=== PATIENT | female | born 1930 | race African-American/Black ===

== ENCOUNTER 2020-04-01 21:55 | Inpatient (IN) | payer MEDICARE, BC ==
[~2020-04-01] VITALS: Ht 160 cm; Wt 73.2 kg
[2020-04-01 23:25] LABS: CHLORIDE 100 mEq/L (98-107)
[2020-04-01 23:28] LABS: HEMATOCRIT. 22.6 % (36.0-48.0); HEMOGLOBIN. 7.7 g/dL (12.0-16.0); MEAN CORPUSCULAR HEMOGLOBIN 29.8 pg (28.0-32.0); MEAN CORPUSCULAR VOLUME 88.1 fL (81.0-99.0); MEAN PLATELET VOLUME 7.7 fl (7.4-10.4); PLATELET 219 x1000/uL (130-400); RED BLOOD CELL COUNT 2.57 mill/uL (4.2-5.4)
[2020-04-02 04:50] LABS: PLATELET ESTIMATE NORMAL
[2020-04-02] MEDS ORDERED: GUAIFENESIN 200MG/10ML SUGAR FREE UDC PO PRN (07:15)
[2020-04-02] MEDS ORDERED: NITROGLYCERIN 0.4MG TABLET SL SL PRN (07:15)
[2020-04-02] MEDS ORDERED: CLONIDINE 0.1MG TABLET PO PRN (07:15)
[2020-04-02] MEDS ORDERED: ONDANSETRON HCL 4MG/2ML INJ IV PRN (07:15)
[2020-04-02] MEDS ORDERED: DOCUSATE SODIUM 100MG CAPSULE PO PRN (07:15)
[2020-04-02] MEDS ORDERED: TRAMADOL 50MG TABLET PO PRN (07:15)
[2020-04-02] MEDS ORDERED: ACETAMINOPHEN 325MG TABLET PO PRN ×2 (07:15)
[2020-04-02] MEDS ORDERED: MAGNESIUM/ALUMINUM HYDROXIDE/SIMETHICONE 30ML UDC PO PRN (07:15)
[2020-04-02] MEDS ORDERED: ZOLPIDEM TARTRATE 5MG TABLET PO PRN (07:15)
[2020-04-02] MEDS ORDERED: IPRATROPIUM/ALBUTEROL 0.5-3(2.5)MG/3ML NEB NEB PRN (07:15)
[2020-04-02] MEDS ORDERED: CHOLECALCIFEROL (D3) 1000 UNIT TABLET PO SCH (09:00)
[2020-04-02] MEDS: ZINC SULFATE 220 MG ( 50 ) CAPSULE PO SCH (09:17)
[2020-04-02] MEDS: FUROSEMIDE 40MG/4ML VIAL IVP SCH ×2 (09:17→21:00)
[2020-04-02] MEDS: ASCORBIC ACID 500 MG TABLET PO SCH ×2 (09:17→21:00)
[2020-04-02] MEDS: FAMOTIDINE 20MG TABLET PO SCH (09:17)
[2020-04-02] MEDS: SPIRONOLACTONE 25MG TABLET PO SCH ×2 (09:17→21:00)
[2020-04-02] MEDS: GUAIFENESIN/DM 600MG/30MG ER TAB 12HR PO SCH ×2 (09:17→21:00)
[2020-04-02 09:52] LABS: D-DIMER 1.89 mg/L FEU (<0.50); INR 1.1; PROTHROMBIN TIME 11.3 sec (9.6-11.0)
[2020-04-02 11:25] LABS: FOLIC ACID (FOLATE) SERUM >20 ng/mL ng/mL (>5.38)
[2020-04-02 11:36] LABS: VITAMIN B12 SERUM 504 pg/mL (211-911)
[2020-04-02] MEDS: AZITHROMYCIN 500 MG TABLET PO SCH (12:13)
[2020-04-02] MEDS: VENLAFAXINE HCL 37.5MG SR CAPSULE 24HR PO SCH (12:34)
[2020-04-02] MEDS: LEVOTHYROXINE SODIUM 25MCG TABLET PO SCH (12:34)
[2020-04-02 12:51] LABS: FERRITIN 191 ng/mL (10-291)
[2020-04-02 14:41] LABS: CREATINE KINASE 43 IU/L (26-192)
[2020-04-02 14:42] LABS: CREATINE KINASE MB FRACTION 1.9 ng/mL (0.5-3.6)
[2020-04-02] MEDS: APIXABAN 2.5 MG TABLET PO SCH (17:00)
[2020-04-02] MEDS ORDERED: ASCORBIC ACID 500 MG TABLET PO SCH (21:00)
[2020-04-02] MEDS: CARVEDILOL 3.125 MG TABLET PO SCH (21:00)
[2020-04-02] MEDS: OLANZAPINE 10MG TABLET PO SCH (21:00)
[2020-04-03 00:20] LABS: CREATINE KINASE 50 IU/L (26-192)
[2020-04-03 00:21] LABS: CREATINE KINASE MB FRACTION 2.2 ng/mL (0.5-3.6)
[2020-04-03 05:15] LABS: HEMATOCRIT. 21.6 % (36.0-48.0); HEMOGLOBIN. 7.4 g/dL (12.0-16.0); MEAN CORPUSCULAR HEMOGLOBIN 29.8 pg (28.0-32.0); MEAN CORPUSCULAR VOLUME 87.6 fL (81.0-99.0); MEAN PLATELET VOLUME 7.7 fl (7.4-10.4); PLATELET 211 x1000/uL (130-400); RED BLOOD CELL COUNT 2.47 mill/uL (4.2-5.4); RED CELL DISTRIBUTION WIDTH 15.7 % (11.6-14.6)
[2020-04-03 05:25] LABS: CHLORIDE 102 mEq/L (98-107)
[2020-04-03 05:30] LABS: PHOSPHORUS 5.1 mg/dL (2.5-4.9)
[2020-04-03 07:20] LABS: PLATELET ESTIMATE NORMAL
[2020-04-03] MEDS ORDERED: ERGOCALCIFEROL 50000UNITS CAPSULE PO SCH (09:00)
[2020-04-03] MEDS: LEVOTHYROXINE SODIUM 25MCG TABLET PO SCH (09:16)
[2020-04-03] MEDS: FUROSEMIDE 40MG/4ML VIAL IVP SCH ×2 (09:16→21:55)
[2020-04-03] MEDS: SPIRONOLACTONE 25MG TABLET PO SCH ×2 (09:17→21:00)
[2020-04-03] MEDS: CARVEDILOL 3.125 MG TABLET PO SCH ×2 (09:18→21:00)
[2020-04-03] MEDS: AZITHROMYCIN 500 MG TABLET PO SCH (09:18)
[2020-04-03] MEDS: GUAIFENESIN/DM 600MG/30MG ER TAB 12HR PO SCH ×2 (09:18→21:55)
[2020-04-03] MEDS: ASCORBIC ACID 500 MG TABLET PO SCH ×2 (09:18→21:56)
[2020-04-03] MEDS: VENLAFAXINE HCL 37.5MG SR CAPSULE 24HR PO SCH (09:18)
[2020-04-03] MEDS: ZINC SULFATE 220 MG ( 50 ) CAPSULE PO SCH (09:18)
[2020-04-03] MEDS: FAMOTIDINE 20MG TABLET PO SCH (09:18)
[2020-04-03] MEDS: APIXABAN 2.5 MG TABLET PO SCH (09:18)
[2020-04-03 15:03] VITALS: BP 127/46
[2020-04-03 20:00] VITALS: BP 145/53
[2020-04-03] MEDS: OLANZAPINE 10MG TABLET PO SCH (21:56)
[2020-04-04] VITALS: BP 140/54
[2020-04-04 04:00] VITALS: BP 150/50
[2020-04-04] MEDS: LEVOTHYROXINE SODIUM 25MCG TABLET PO SCH (05:02)
[2020-04-04 06:54] LABS: HEMATOCRIT. 22.4 % (36.0-48.0); HEMOGLOBIN. 7.6 g/dL (12.0-16.0); MEAN CORPUSCULAR HEMOGLOBIN 29.8 pg (28.0-32.0); MEAN CORPUSCULAR VOLUME 87.9 fL (81.0-99.0); MEAN PLATELET VOLUME 7.7 fl (7.4-10.4); PLATELET 252 x1000/uL (130-400); RED BLOOD CELL COUNT 2.55 mill/uL (4.2-5.4); RED CELL DISTRIBUTION WIDTH 15.8 % (11.6-14.6)
[2020-04-04 09:02] VITALS: BP 158/54
[2020-04-04] MEDS: ASCORBIC ACID 500 MG TABLET PO SCH ×2 (09:14→21:14)
[2020-04-04] MEDS: GUAIFENESIN/DM 600MG/30MG ER TAB 12HR PO SCH ×2 (09:15→21:13)
[2020-04-04] MEDS: AZITHROMYCIN 500 MG TABLET PO SCH (09:15)
[2020-04-04] MEDS: VENLAFAXINE HCL 37.5MG SR CAPSULE 24HR PO SCH (09:15)
[2020-04-04] MEDS: SPIRONOLACTONE 25MG TABLET PO SCH ×2 (09:15→21:13)
[2020-04-04] MEDS: FAMOTIDINE 20MG TABLET PO SCH (09:15)
[2020-04-04] MEDS: FUROSEMIDE 40MG/4ML VIAL IVP SCH ×2 (09:15→21:14)
[2020-04-04] MEDS: ZINC SULFATE 220 MG ( 50 ) CAPSULE PO SCH (09:16)
[2020-04-04 12:00] VITALS: BP 127/49
[2020-04-04 14:18] LABS: PLATELET ESTIMATE NORMAL
[2020-04-04 16:00] VITALS: BP 155/67
[2020-04-04 20:00] VITALS: BP 149/46
[2020-04-04] MEDS: OLANZAPINE 10MG TABLET PO SCH (21:15)
[2020-04-05] VITALS (11 sets, daily range): BP systolic 130–153; BP diastolic 38–77
[2020-04-05 06:13] LABS: BASOPHILS % 0.3 % (0.0-2.0); EOSINOPHILS % 0.1 % (0.0-5.0); LYMPHOCYTES % 9.9 % (20.0-50.0); MEAN CORPUSCULAR HEMOGLOBIN 30.2 pg (28.0-32.0); MEAN CORPUSCULAR VOLUME 87.9 fL (81.0-99.0); MEAN PLATELET VOLUME 7.6 fl (7.4-10.4); MONOCYTES % 6.4 % (2.0-8.0); NEUTROPHILS % 83.3 % (40.0-76.0); PLATELET 247 x1000/uL (130-400); RED BLOOD CELL COUNT 2.31 mill/uL (4.2-5.4); RED CELL DISTRIBUTION WIDTH 15.9 % (11.6-14.6)
[2020-04-05] MEDS: LEVOTHYROXINE SODIUM 25MCG TABLET PO SCH (06:54)
[2020-04-05 07:55] LABS: HEMATOCRIT. 20.3 % (36.0-48.0)
[2020-04-05] MEDS ORDERED: POTASSIUM CHLORIDE 20MEQ/PACKET PO SCH (09:30)
[2020-04-05] MEDS: GUAIFENESIN/DM 600MG/30MG ER TAB 12HR PO SCH ×2 (09:50→21:50)
[2020-04-05] MEDS: AZITHROMYCIN 500 MG TABLET PO SCH (09:50)
[2020-04-05] MEDS: ZINC SULFATE 220 MG ( 50 ) CAPSULE PO SCH (09:50)
[2020-04-05] MEDS: ASCORBIC ACID 500 MG TABLET PO SCH ×2 (09:50→21:50)
[2020-04-05] MEDS: FAMOTIDINE 20MG TABLET PO SCH (09:50)
[2020-04-05] MEDS: FUROSEMIDE 40MG/4ML VIAL IVP SCH ×2 (09:50→21:50)
[2020-04-05] MEDS: VENLAFAXINE HCL 37.5MG SR CAPSULE 24HR PO SCH (09:50)
[2020-04-05] MEDS: SPIRONOLACTONE 25MG TABLET PO SCH ×2 (09:51→21:50)
[2020-04-05] MEDS: AMLODIPINE 2.5MG TABLET PO SCH (09:52)
[2020-04-05 10:35] LABS: BG BASE EXCESS -1.3 mmol/L (-2.0-2.0); BG CARBOXYHEMOGLOBIN 0.5 % (0.5-1.5); BG DEOXYHEMOGLOBIN 3.4 % (0.0-5.0); BG FRACTION INSPIRED OXYGEN 32; BG HCO3 ACT 22.9 mmol/L (22.0-26.0); BG METHEMOGLOBIN 0.3 % (0.0-1.5); BG OXYGEN SATURATION 96.6 % (92.0-98.5); BG OXYHEMOGLOBIN 95.8 % (94.0-97.0); BG PCO2 35.4 mmHg (35.0-45.0); BG PH 7.428 (7.350-7.450); BG PO2 90.4 mmHg (75.0-100.0); BG SAMPLE SITE RIGHT BRACHIAL; BG TOTAL HEMOGLOBIN 7.6 g/dL (12.0-18.0); BG VENT MODE NASAL CANNULA
[2020-04-05] MEDS ORDERED: SODIUM BICARBONATE 4% (2.4MEQ) 5ML VIAL IV ONE (12:36)
[2020-04-05] MEDS ORDERED: LIDOCAINE HCL 1% 20ML VIAL (Pyxis) INJ ONE (12:36)
[2020-04-05] MEDS: FERROUS SULFATE 325MG TABLET PO SCH (18:20)
[2020-04-05] MEDS ORDERED: ASCORBIC ACID 500 MG TABLET PO SCH (21:00)
[2020-04-05 21:42] LABS: HEMATOCRIT 27.4 % (36.0-48.0); HEMOGLOBIN 9.2 g/dL (12.0-16.0)
[2020-04-05] MEDS: OLANZAPINE 10MG TABLET PO SCH (21:50)
[2020-04-06] VITALS: BP 120/73
[2020-04-06 04:00] VITALS: BP 123/45
[2020-04-06] MEDS: FERROUS SULFATE 325MG TABLET PO SCH ×2 (06:57→12:42)
[2020-04-06] MEDS: LEVOTHYROXINE SODIUM 25MCG TABLET PO SCH (06:57)
[2020-04-06 08:00] VITALS: BP 166/58
[2020-04-06 08:12] LABS: BASOPHILS % 0.5 % (0.0-2.0); EOSINOPHILS % 0.1 % (0.0-5.0); HEMATOCRIT. 26.5 % (36.0-48.0); HEMOGLOBIN. 8.9 g/dL (12.0-16.0); LYMPHOCYTES % 8.8 % (20.0-50.0); MEAN CORPUSCULAR HEMOGLOBIN 28.5 pg (28.0-32.0); MEAN CORPUSCULAR VOLUME 85.2 fL (81.0-99.0); MEAN PLATELET VOLUME 7.2 fl (7.4-10.4); MONOCYTES % 6.5 % (2.0-8.0); NEUTROPHILS % 84.1 % (40.0-76.0); PLATELET 250 x1000/uL (130-400); RED BLOOD CELL COUNT 3.11 mill/uL (4.2-5.4); RED CELL DISTRIBUTION WIDTH 18.2 % (11.6-14.6)
[2020-04-06] MEDS: GUAIFENESIN/DM 600MG/30MG ER TAB 12HR PO SCH (09:11)
[2020-04-06] MEDS: AMLODIPINE 2.5MG TABLET PO SCH (09:12)
[2020-04-06] MEDS: ASCORBIC ACID 500 MG TABLET PO SCH (09:12)
[2020-04-06] MEDS: VENLAFAXINE HCL 37.5MG SR CAPSULE 24HR PO SCH (09:12)
[2020-04-06] MEDS: AZITHROMYCIN 500 MG TABLET PO SCH (09:12)
[2020-04-06] MEDS: FAMOTIDINE 20MG TABLET PO SCH (09:12)
[2020-04-06] MEDS: FUROSEMIDE 40MG/4ML VIAL IVP SCH (09:12)
[2020-04-06] MEDS: ZINC SULFATE 220 MG ( 50 ) CAPSULE PO SCH (09:12)
[2020-04-06] MEDS: SPIRONOLACTONE 25MG TABLET PO SCH (09:12)
[2020-04-06 10:47] LABS: BG BASE EXCESS -0.6 mmol/L (-2.0-2.0); BG CARBOXYHEMOGLOBIN 0.3 % (0.5-1.5); BG DEOXYHEMOGLOBIN 9.3 % (0.0-5.0); BG FRACTION INSPIRED OXYGEN 21; BG HCO3 ACT 23.3 mmol/L (22.0-26.0); BG METHEMOGLOBIN 0.2 % (0.0-1.5); BG OXYGEN SATURATION 90.7 % (92.0-98.5); BG OXYHEMOGLOBIN 90.2 % (94.0-97.0); BG PCO2 35.7 mmHg (35.0-45.0); BG PH 7.433 (7.350-7.450); BG PO2 58.2 mmHg (75.0-100.0); BG SAMPLE SITE LEFT BRACHIAL; BG TOTAL HEMOGLOBIN 10.1 g/dL (12.0-18.0); BG VENT MODE ROOM AIR
[2020-04-06] MEDS ORDERED: OMEPRAZOLE 20MG CAPSULE EXTENDED RELEASE PO SCH (12:45)
[2020-04-06 13:08] VITALS: BP 149/56
[2020-05-10] MEDS ORDERED: ATOR-2 MT (14:33)
[2020-05-10] MEDS ORDERED: LEVO25TA7 PO (14:33)
[2020-05-10] MEDS ORDERED: TERA1CAP46 MT (14:33)
[2020-05-10] MEDS ORDERED: LOSA50TA41 PO (14:33)
[2020-05-10] MEDS ORDERED: FOLI-43 MT (14:33)
[2020-05-10] MEDS ORDERED: FURO40TA5 PO (14:33)
[2020-05-10] MEDS ORDERED: FAMO20TA8 PO (14:33)
[2020-05-10] MEDS ORDERED: OLAN20TA34 MT (14:33)
[2020-05-10] MEDS ORDERED: SENN-257 MT (14:33)
[2020-05-10] MEDS ORDERED: CELE200C MT (14:33)
[2020-05-10] MEDS ORDERED: VENL-180 PO (14:33)
[2020-05-10] MEDS ORDERED: AMLO10TA80 PO (14:33)
[2020-05-10] MEDS ORDERED: FERR325T6 MT (14:33)
[2020-05-10] MEDS ORDERED: ATEN50TA MT (14:33)
[2020-05-10] MEDS ORDERED: PANT40TA51 PO (14:33)
[2020-05-10] MEDS ORDERED: AMLO5TAB88 MT (15:35)
== END 2020-04-06 14:20 | disposition home health service (06) | DRG 291 ==
LOC: ER 21:55 → EDBD 21:55 → MICUSO 04-02 06:00 → EDBEDREQDT 04-02 06:10 → EDBEDREQ 04-02 06:10 → EDBEDREQTM 04-02 06:10 → SUPCPDRO 04-02 07:05 → 7WST 04-03 10:21 → 5WST 04-04 05:40
PROVIDERS: ADMIT Internal Medicine; ATTEND Internal Medicine
PROC: 30233N1 Transfusion of Nonautologous Red Blood Cells into Peripheral Vein, Percutaneous Approach (ICD-10-PCS; principal; 2020-04-05)
PROC: 02HV33Z Insertion of Infusion Device into Superior Vena Cava, Percutaneous Approach (ICD-10-PCS; 2020-04-05)
PROC: B548ZZA Ultrasonography of Superior Vena Cava, Guidance (ICD-10-PCS; 2020-04-05)
PROC: B5181ZA Fluoroscopy of Superior Vena Cava using Low Osmolar Contrast, Guidance (ICD-10-PCS; 2020-04-05)
DX: I13.0 Hypertensive heart and chronic kidney disease with heart failure and stage 1 through stage 4 chronic kidney disease, or unspecified chronic kidney disease (principal); J18.9 Pneumonia, unspecified organism; J96.01 Acute respiratory failure with hypoxia; N17.0 Acute kidney failure with tubular necrosis; I50.41 Acute combined systolic (congestive) and diastolic (congestive) heart failure; J44.0 Chronic obstructive pulmonary disease with (acute) lower respiratory infection; E44.0 Moderate protein-calorie malnutrition; E87.1 Hypo-osmolality and hyponatremia; B37.81 Candidal esophagitis; D63.8 Anemia in other chronic diseases classified elsewhere; E03.9 Hypothyroidism, unspecified; E11.22 Type 2 diabetes mellitus with diabetic chronic kidney disease; N18.9 Chronic kidney disease, unspecified; E78.5 Hyperlipidemia, unspecified; G25.0 Essential tremor; I25.10 Atherosclerotic heart disease of native coronary artery without angina pectoris; I27.20 Pulmonary hypertension, unspecified; I35.9 Nonrheumatic aortic valve disorder, unspecified; I48.0 Paroxysmal atrial fibrillation; I49.3 Ventricular premature depolarization; J30.9 Allergic rhinitis, unspecified; K21.9 Gastro-esophageal reflux disease without esophagitis; K22.70 Barrett's esophagus without dysplasia; M32.9 Systemic lupus erythematosus, unspecified; F31.9 Bipolar disorder, unspecified; I34.0 Nonrheumatic mitral (valve) insufficiency; F41.9 Anxiety disorder, unspecified; K44.9 Diaphragmatic hernia without obstruction or gangrene; K21.00 Gastro-esophageal reflux disease with esophagitis, without bleeding; K52.9 Noninfective gastroenteritis and colitis, unspecified; M19.90 Unspecified osteoarthritis, unspecified site; Z20.822 Contact with and (suspected) exposure to COVID-19; D50.9 Iron deficiency anemia, unspecified; Z78.9 Other specified health status; Z79.01 Long term (current) use of anticoagulants; Z68.28 Body mass index [BMI] 28.0-28.9, adult; I25.2 Old myocardial infarction; Z86.73 Personal history of transient ischemic attack (TIA), and cerebral infarction without residual deficits; Z87.891 Personal history of nicotine dependence; Z91.81 History of falling; Z95.3 Presence of xenogenic heart valve; Z95.5 Presence of coronary angioplasty implant and graft; Z79.899 Other long term (current) drug therapy; Z87.11 Personal history of peptic ulcer disease
CPT/HCPCS: 36415; 36573; 36600; 71045; 80048; 80053; 80061; 82270; 82375; 82550; 82553; 82607; 82728; 82746; 82805; 82962; 83036; 83540; 83550; 83615; 83735; 83880; 84100; 84145; 84484; 85014; 85018; 85025; 85379; 86140; 86850; 86900; 86920; 87635; 93005; 93306; 93970; 96374; 97116; 97162; 97166; 97530; 97535; 99291; C1725; C1769; C1893; J1940; J3490; J7040; P9016

== ENCOUNTER 2020-04-11 17:14 | Inpatient (IN) | payer MEDICARE, BC ==
[~2020-04-11] VITALS: Ht 157.5 cm; Wt 64.9 kg
[2020-04-11] MEDS ORDERED: DOCUSATE SODIUM 100MG CAPSULE PO PRN (20:00)
[2020-04-11] MEDS ORDERED: CLONIDINE 0.1MG TABLET PO PRN (20:00)
[2020-04-11] MEDS ORDERED: IPRATROPIUM/ALBUTEROL 0.5-3(2.5)MG/3ML NEB HHN PRN (20:00)
[2020-04-11] MEDS ORDERED: NA PHOS,M-B/NA PHOS,DI-BA ENEMA 118ML PR PRN (20:00)
[2020-04-11] MEDS ORDERED: GUAIFENESIN 200MG/10ML SUGAR FREE UDC PO PRN (20:00)
[2020-04-11 20:24] LABS: HEMATOCRIT. 29.4 % (36.0-48.0); HEMOGLOBIN. 9.8 g/dL (12.0-16.0); MEAN CORPUSCULAR HEMOGLOBIN 28.1 pg (28.0-32.0); MEAN CORPUSCULAR VOLUME 84.8 fL (81.0-99.0); MEAN PLATELET VOLUME 7.2 fl (7.4-10.4); PLATELET 300 x1000/uL (130-400); RED BLOOD CELL COUNT 3.47 mill/uL (4.2-5.4); RED CELL DISTRIBUTION WIDTH 17.7 % (11.6-14.6)
[2020-04-11] MEDS ORDERED: LEVOTHYROXINE SODIUM 25MCG TABLET PO NR (20:30)
[2020-04-11 20:31] LABS: CHLORIDE 100 mEq/L (98-107)
[2020-04-11 20:32] LABS: INR 1.1; PROTHROMBIN TIME 11.6 sec (9.6-11.0)
[2020-04-11] MEDS ORDERED: CARVEDILOL 3.125 MG TABLET PO NR (20:37)
[2020-04-11 20:55] LABS: PLATELET ESTIMATE NORMAL
[2020-04-11] MEDS ORDERED: FOLIC ACID 1 MG, THIAMINE HCL 100 MG in SODIUM CHLORIDE 0.9% 1,000 ML IV SCH (21:00)
[2020-04-11] MEDS ORDERED: MULTIVITAMINS,THER W-MINERALS TABLET PO SCH (21:00)
[2020-04-11] MEDS ORDERED: MVI, ADULT NO.1 10 ML, FOLIC ACID 1 MG, THIAMINE HCL 100 MG in SODIUM CHLORIDE 0.9% 1,0... IV SCH (21:00)
[2020-04-11 21:25] LABS: BG BASE EXCESS 4.2 mmol/L (-2.0-2.0); BG CARBOXYHEMOGLOBIN 0.2 % (0.5-1.5); BG DEOXYHEMOGLOBIN 4.3 % (0.0-5.0); BG FRACTION INSPIRED OXYGEN 24; BG HCO3 ACT 28.5 mmol/L (22.0-26.0); BG METHEMOGLOBIN 0.2 % (0.0-1.5); BG OXYGEN SATURATION 95.7 % (92.0-98.5); BG OXYHEMOGLOBIN 95.3 % (94.0-97.0); BG PCO2 41.3 mmHg (35.0-45.0); BG PH 7.456 (7.350-7.450); BG PO2 84.7 mmHg (75.0-100.0); BG SAMPLE SITE RIGHT RADIAL; BG TOTAL HEMOGLOBIN 11.2 g/dL (12.0-18.0); BG VENT MODE NASAL CANNULA
[2020-04-12] MEDS: ATORVASTATIN CALCIUM 40MG TABLET PO SCH ×2 (00:14→21:05)
[2020-04-12] MEDS: METHYLPREDNISOLONE SOD SUCC 40 MG/ML VIAL IV SCH ×4 (01:23→21:00)
[2020-04-12] MEDS: ENOXAPARIN 30MG/0.3ML SYR SUBCUT SCH ×2 (01:23→21:00)
[2020-04-12] MEDS: FUROSEMIDE 40MG TABLET PO SCH ×3 (01:23→21:02)
[2020-04-12] MEDS: OLANZAPINE 10MG TABLET PO SCH ×2 (01:23→21:01)
[2020-04-12] MEDS: HYDRALAZINE HCL 25MG TABLET PO SCH ×4 (01:24→21:33)
[2020-04-12 05:14] LABS: HEMATOCRIT. 30.3 % (36.0-48.0); MEAN CORPUSCULAR HEMOGLOBIN 28.3 pg (28.0-32.0); MEAN CORPUSCULAR VOLUME 85.5 fL (81.0-99.0); MEAN PLATELET VOLUME 7.2 fl (7.4-10.4); PLATELET 290 x1000/uL (130-400); RED BLOOD CELL COUNT 3.54 mill/uL (4.2-5.4); RED CELL DISTRIBUTION WIDTH 17.9 % (11.6-14.6)
[2020-04-12] MEDS: PANTOPRAZOLE 40MG DR TABLET PO SCH (06:30)
[2020-04-12] MEDS: FERROUS SULFATE 325MG TABLET PO SCH ×3 (07:00→17:27)
[2020-04-12 08:48] LABS: PLATELET ESTIMATE NORMAL
[2020-04-12] MEDS: TICAGRELOR 90 MG TABLET PO SCH ×2 (09:14→17:27)
[2020-04-12] MEDS: VENLAFAXINE HCL 37.5MG SR CAPSULE 24HR PO SCH (09:14)
[2020-04-12 10:30] VITALS: BP 145/52
[2020-04-12] MEDS: CEFTRIAXONE 1,000 MG in DEXTROSE 5% WATER 50 ML IV SCH (11:42)
[2020-04-12] MEDS: POTASSIUM CHLORIDE 20MEQ TABLET SR PO SCH ×2 (11:42→17:27)
[2020-04-12] MEDS: AMLODIPINE 2.5MG TABLET PO SCH ×2 (11:43→21:02)
[2020-04-12 12:00] VITALS: BP 143/50
[2020-04-12 16:00] VITALS: BP 140/50
[2020-04-12] MEDS ORDERED: DEXTROSE 50% WATER 50ML SYRINGE IV PRN (19:30)
[2020-04-12 20:00] VITALS: BP 126/41
[2020-04-12] MEDS: BLOOD SUGAR DIAGNOSTIC STRIP TEST SCH (21:02)
[2020-04-12] MEDS: INSULIN LISPRO 100 UNITS/ML SUBCUT SCH (21:04)
[2020-04-12] MEDS: IPRATROPIUM/ALBUTEROL 0.5-3(2.5)MG/3ML NEB HHN SCH (22:06)
[2020-04-13] VITALS: BP 119/45
[2020-04-13 04:00] VITALS: BP 119/50
[2020-04-13] MEDS: IPRATROPIUM/ALBUTEROL 0.5-3(2.5)MG/3ML NEB HHN SCH ×5 (04:01→20:43)
[2020-04-13] MEDS: METHYLPREDNISOLONE SOD SUCC 40 MG/ML VIAL IV SCH ×3 (05:05→20:29)
[2020-04-13] MEDS: HYDRALAZINE HCL 25MG TABLET PO SCH ×3 (06:07→21:35)
[2020-04-13] MEDS: PANTOPRAZOLE 40MG DR TABLET PO SCH (06:07)
[2020-04-13] MEDS: BLOOD SUGAR DIAGNOSTIC STRIP TEST SCH ×4 (06:08→20:32)
[2020-04-13] MEDS: INSULIN LISPRO 100 UNITS/ML SUBCUT SCH ×4 (06:08→20:32)
[2020-04-13 08:00] VITALS: BP 121/71
[2020-04-13 08:49] LABS: HEMATOCRIT. 27.5 % (36.0-48.0); HEMOGLOBIN. 9.2 g/dL (12.0-16.0); MEAN CORPUSCULAR HEMOGLOBIN 29.1 pg (28.0-32.0); MEAN CORPUSCULAR VOLUME 86.9 fL (81.0-99.0); MEAN PLATELET VOLUME 7.4 fl (7.4-10.4); PLATELET 271 x1000/uL (130-400); RED BLOOD CELL COUNT 3.17 mill/uL (4.2-5.4); RED CELL DISTRIBUTION WIDTH 18.2 % (11.6-14.6)
[2020-04-13 09:02] LABS: CHLORIDE 103 mEq/L (98-107)
[2020-04-13] MEDS: FERROUS SULFATE 325MG TABLET PO SCH ×3 (09:17→17:19)
[2020-04-13] MEDS: AMLODIPINE 2.5MG TABLET PO SCH ×2 (09:20→20:31)
[2020-04-13] MEDS: POTASSIUM CHLORIDE 20MEQ TABLET SR PO SCH ×2 (09:21→17:20)
[2020-04-13] MEDS: TICAGRELOR 90 MG TABLET PO SCH ×2 (09:21→17:19)
[2020-04-13] MEDS: VENLAFAXINE HCL 37.5MG SR CAPSULE 24HR PO SCH (09:21)
[2020-04-13] MEDS: FUROSEMIDE 40MG TABLET PO SCH ×2 (09:22→20:30)
[2020-04-13] MEDS: CEFTRIAXONE 1,000 MG in DEXTROSE 5% WATER 50 ML IV SCH (11:57)
[2020-04-13 12:00] VITALS: BP 124/80
[2020-04-13 16:00] VITALS: BP 126/44
[2020-04-13 20:00] VITALS: BP 127/45
[2020-04-13] MEDS: ENOXAPARIN 30MG/0.3ML SYR SUBCUT SCH (20:30)
[2020-04-13] MEDS: OLANZAPINE 10MG TABLET PO SCH (20:30)
[2020-04-13] MEDS: ATORVASTATIN CALCIUM 40MG TABLET PO SCH (20:30)
[2020-04-13 23:39] LABS: PLATELET ESTIMATE NORMAL
[2020-04-14] VITALS (7 sets, daily range): BP systolic 107–126; BP diastolic 36–60
[2020-04-14] MEDS: IPRATROPIUM/ALBUTEROL 0.5-3(2.5)MG/3ML NEB HHN SCH ×5 (01:54→20:05)
[2020-04-14] MEDS: METHYLPREDNISOLONE SOD SUCC 40 MG/ML VIAL IV SCH ×3 (05:38→21:35)
[2020-04-14] MEDS: HYDRALAZINE HCL 25MG TABLET PO SCH ×3 (05:48→21:35)
[2020-04-14] MEDS: BLOOD SUGAR DIAGNOSTIC STRIP TEST SCH ×4 (06:32→21:00)
[2020-04-14] MEDS: PANTOPRAZOLE 40MG DR TABLET PO SCH (06:32)
[2020-04-14] MEDS: INSULIN LISPRO 100 UNITS/ML SUBCUT SCH ×4 (06:34→21:36)
[2020-04-14] MEDS: TICAGRELOR 90 MG TABLET PO SCH ×2 (08:51→17:18)
[2020-04-14] MEDS: POTASSIUM CHLORIDE 20MEQ TABLET SR PO SCH ×2 (08:51→17:18)
[2020-04-14] MEDS: VENLAFAXINE HCL 37.5MG SR CAPSULE 24HR PO SCH (08:51)
[2020-04-14] MEDS: FERROUS SULFATE 325MG TABLET PO SCH ×3 (08:51→17:18)
[2020-04-14] MEDS: FUROSEMIDE 40MG TABLET PO SCH ×2 (08:51→21:35)
[2020-04-14] MEDS: AMLODIPINE 2.5MG TABLET PO SCH ×2 (09:01→21:35)
[2020-04-14] MEDS: CEFTRIAXONE 1,000 MG in DEXTROSE 5% WATER 50 ML IV SCH (12:06)
[2020-04-14 20:58] LABS: HEMATOCRIT. 26.9 % (36.0-48.0); HEMOGLOBIN. 8.7 g/dL (12.0-16.0); MEAN CORPUSCULAR HEMOGLOBIN 28.2 pg (28.0-32.0); MEAN CORPUSCULAR VOLUME 87.4 fL (81.0-99.0); MEAN PLATELET VOLUME 7.9 fl (7.4-10.4); PLATELET 257 x1000/uL (130-400); RED BLOOD CELL COUNT 3.07 mill/uL (4.2-5.4); RED CELL DISTRIBUTION WIDTH 19.3 % (11.6-14.6)
[2020-04-14] MEDS ORDERED: SODIUM POLYSTYRENE SULFONATE 15 G/60 ML BOT PO NR (21:30)
[2020-04-14] MEDS: ENOXAPARIN 30MG/0.3ML SYR SUBCUT SCH (21:34)
[2020-04-14] MEDS: OLANZAPINE 10MG TABLET PO SCH (21:34)
[2020-04-14] MEDS: ATORVASTATIN CALCIUM 40MG TABLET PO SCH (21:35)
[2020-04-14 22:34] LABS: PLATELET ESTIMATE NORMAL
[2020-04-15] VITALS (7 sets, daily range): BP systolic 121–135; BP diastolic 40–56
[2020-04-15] MEDS: METHYLPREDNISOLONE SOD SUCC 40 MG/ML VIAL IV SCH ×3 (05:48→21:36)
[2020-04-15] MEDS: HYDRALAZINE HCL 25MG TABLET PO SCH ×3 (05:49→21:40)
[2020-04-15] MEDS: BLOOD SUGAR DIAGNOSTIC STRIP TEST SCH ×4 (06:28→21:00)
[2020-04-15] MEDS: INSULIN LISPRO 100 UNITS/ML SUBCUT SCH ×4 (06:41→22:24)
[2020-04-15] MEDS: PANTOPRAZOLE 40MG DR TABLET PO SCH (06:41)
[2020-04-15] MEDS: TICAGRELOR 90 MG TABLET PO SCH ×2 (08:48→18:23)
[2020-04-15] MEDS: FERROUS SULFATE 325MG TABLET PO SCH ×3 (08:48→18:23)
[2020-04-15] MEDS: FUROSEMIDE 40MG TABLET PO SCH ×2 (08:49→21:37)
[2020-04-15] MEDS: AMLODIPINE 2.5MG TABLET PO SCH ×2 (08:49→21:40)
[2020-04-15] MEDS: VENLAFAXINE HCL 37.5MG SR CAPSULE 24HR PO SCH (08:49)
[2020-04-15 08:58] LABS: HEMATOCRIT. 26.6 % (36.0-48.0); HEMOGLOBIN. 8.7 g/dL (12.0-16.0); MEAN CORPUSCULAR HEMOGLOBIN 28.4 pg (28.0-32.0); MEAN CORPUSCULAR VOLUME 86.8 fL (81.0-99.0); MEAN PLATELET VOLUME 7.7 fl (7.4-10.4); PLATELET 266 x1000/uL (130-400); RED BLOOD CELL COUNT 3.06 mill/uL (4.2-5.4); RED CELL DISTRIBUTION WIDTH 18.9 % (11.6-14.6)
[2020-04-15] MEDS: IPRATROPIUM/ALBUTEROL 0.5-3(2.5)MG/3ML NEB HHN SCH ×4 (09:19→21:38)
[2020-04-15 10:35] LABS: PLATELET ESTIMATE NORMAL
[2020-04-15] MEDS: CEFTRIAXONE 1,000 MG in DEXTROSE 5% WATER 50 ML IV SCH (11:39)
[2020-04-15] MEDS ORDERED: SODIUM POLYSTYRENE SULFONATE 15 G/60 ML BOT PO NR (18:00)
[2020-04-15] MEDS: ENOXAPARIN 30MG/0.3ML SYR SUBCUT SCH (21:36)
[2020-04-15] MEDS: OLANZAPINE 10MG TABLET PO SCH (21:39)
[2020-04-15] MEDS: ATORVASTATIN CALCIUM 40MG TABLET PO SCH (21:40)
[2020-04-16] VITALS: BP 144/43
[2020-04-16] MEDS: IPRATROPIUM/ALBUTEROL 0.5-3(2.5)MG/3ML NEB HHN SCH ×6 (00:59→20:11)
[2020-04-16 04:00] VITALS: BP 107/53
[2020-04-16] MEDS: HYDRALAZINE HCL 25MG TABLET PO SCH ×3 (06:00→21:21)
[2020-04-16] MEDS: BLOOD SUGAR DIAGNOSTIC STRIP TEST SCH ×4 (06:28→21:22)
[2020-04-16] MEDS: METHYLPREDNISOLONE SOD SUCC 40 MG/ML VIAL IV SCH ×2 (06:33→21:21)
[2020-04-16] MEDS: PANTOPRAZOLE 40MG DR TABLET PO SCH (06:33)
[2020-04-16] MEDS: INSULIN LISPRO 100 UNITS/ML SUBCUT SCH ×4 (06:35→21:00)
[2020-04-16 08:00] VITALS: BP 127/49
[2020-04-16] MEDS: FUROSEMIDE 40MG TABLET PO SCH ×2 (09:01→21:22)
[2020-04-16] MEDS: FERROUS SULFATE 325MG TABLET PO SCH ×3 (09:01→17:38)
[2020-04-16] MEDS: AMLODIPINE 2.5MG TABLET PO SCH ×2 (09:02→21:22)
[2020-04-16] MEDS: TICAGRELOR 90 MG TABLET PO SCH ×2 (09:02→17:32)
[2020-04-16] MEDS: VENLAFAXINE HCL 37.5MG SR CAPSULE 24HR PO SCH (09:02)
[2020-04-16 12:00] VITALS: BP 106/55
[2020-04-16] MEDS: CEFTRIAXONE 1,000 MG in DEXTROSE 5% WATER 50 ML IV SCH (12:31)
[2020-04-16 13:39] LABS: HEMATOCRIT. 28.7 % (36.0-48.0); HEMOGLOBIN. 9.3 g/dL (12.0-16.0); MEAN CORPUSCULAR HEMOGLOBIN 28.1 pg (28.0-32.0); MEAN CORPUSCULAR VOLUME 86.8 fL (81.0-99.0); MEAN PLATELET VOLUME 7.7 fl (7.4-10.4); PLATELET 297 x1000/uL (130-400); RED CELL DISTRIBUTION WIDTH 18.8 % (11.6-14.6)
[2020-04-16] MEDS: ASPIRIN 81MG TABLET PO SCH (15:59)
[2020-04-16 16:00] VITALS: BP 133/62
[2020-04-16 17:25] LABS: PLATELET ESTIMATE NORMAL
[2020-04-16 20:00] VITALS: BP 139/47
[2020-04-16] MEDS: ENOXAPARIN 30MG/0.3ML SYR SUBCUT SCH (21:21)
[2020-04-16] MEDS: ATORVASTATIN CALCIUM 40MG TABLET PO SCH (21:22)
[2020-04-16] MEDS: OLANZAPINE 10MG TABLET PO SCH (21:22)
[2020-04-16] MEDS: CARVEDILOL 3.125 MG TABLET PO SCH (21:22)
[2020-04-17] VITALS: BP 158/65
[2020-04-17] MEDS: IPRATROPIUM/ALBUTEROL 0.5-3(2.5)MG/3ML NEB HHN SCH ×6 (01:40→21:55)
[2020-04-17 04:00] VITALS: BP 137/47
[2020-04-17] MEDS: PANTOPRAZOLE 40MG DR TABLET PO SCH ×3 (06:44→11:03)
[2020-04-17] MEDS: HYDRALAZINE HCL 25MG TABLET PO SCH ×3 (06:44→21:05)
[2020-04-17] MEDS: INSULIN LISPRO 100 UNITS/ML SUBCUT SCH ×4 (06:45→20:09)
[2020-04-17] MEDS: BLOOD SUGAR DIAGNOSTIC STRIP TEST SCH ×4 (06:45→20:09)
[2020-04-17 08:00] VITALS: BP 130/60
[2020-04-17] MEDS: VENLAFAXINE HCL 37.5MG SR CAPSULE 24HR PO SCH (08:32)
[2020-04-17] MEDS: FERROUS SULFATE 325MG TABLET PO SCH ×3 (08:32→16:52)
[2020-04-17] MEDS: ASPIRIN 81MG TABLET PO SCH (08:32)
[2020-04-17] MEDS: FUROSEMIDE 40MG TABLET PO SCH (08:32)
[2020-04-17] MEDS: AMLODIPINE 2.5MG TABLET PO SCH (08:33)
[2020-04-17] MEDS: TICAGRELOR 90 MG TABLET PO SCH (08:33)
[2020-04-17] MEDS: METHYLPREDNISOLONE SOD SUCC 40 MG/ML VIAL IV SCH ×2 (08:33→20:06)
[2020-04-17] MEDS: CARVEDILOL 3.125 MG TABLET PO SCH (08:34)
[2020-04-17] MEDS: DILTIAZEM HCL 60MG TABLET PO SCH ×3 (10:24→21:05)
[2020-04-17] MEDS: SODIUM CHLORIDE 0.45% 1,000 ML IV SCH ×2 (10:25→20:06)
[2020-04-17] MEDS: CEFTRIAXONE 1,000 MG in DEXTROSE 5% WATER 50 ML IV SCH (10:43)
[2020-04-17] MEDS: PANTOPRAZOLE SODIUM 40 MG/VIAL IV SCH (11:10)
[2020-04-17] MEDS ORDERED: POTASSIUM CHLORIDE 20MEQ TABLET SR PO SCH (11:30)
[2020-04-17 12:00] VITALS: BP 128/69
[2020-04-17 16:00] VITALS: BP 123/65
[2020-04-17 20:00] VITALS: BP 113/72
[2020-04-17] MEDS: OLANZAPINE 10MG TABLET PO SCH (20:06)
[2020-04-17] MEDS: ATORVASTATIN CALCIUM 40MG TABLET PO SCH (20:06)
[2020-04-18] VITALS: BP 99/45
[2020-04-18] MEDS: IPRATROPIUM/ALBUTEROL 0.5-3(2.5)MG/3ML NEB HHN SCH ×4 (01:10→20:59)
[2020-04-18 04:00] VITALS: BP 102/39
[2020-04-18] MEDS: HYDRALAZINE HCL 25MG TABLET PO SCH ×2 (05:53→13:55)
[2020-04-18] MEDS: BLOOD SUGAR DIAGNOSTIC STRIP TEST SCH ×4 (05:54→19:50)
[2020-04-18] MEDS: SODIUM CHLORIDE 0.45% 1,000 ML IV SCH ×2 (05:54→16:10)
[2020-04-18] MEDS: DILTIAZEM HCL 60MG TABLET PO SCH ×2 (05:54→13:57)
[2020-04-18] MEDS: INSULIN LISPRO 100 UNITS/ML SUBCUT SCH ×4 (05:59→19:47)
[2020-04-18 08:00] VITALS: BP 108/69
[2020-04-18] MEDS: PANTOPRAZOLE SODIUM 40 MG/VIAL IV SCH (08:43)
[2020-04-18] MEDS: VENLAFAXINE HCL 37.5MG SR CAPSULE 24HR PO SCH (08:43)
[2020-04-18] MEDS: FERROUS SULFATE 325MG TABLET PO SCH ×3 (08:43→18:13)
[2020-04-18] MEDS: METHYLPREDNISOLONE SOD SUCC 40 MG/ML VIAL IV SCH ×2 (08:43→19:50)
[2020-04-18 08:55] LABS: HEMATOCRIT. 25.1 % (36.0-48.0); HEMOGLOBIN. 8.3 g/dL (12.0-16.0); MEAN CORPUSCULAR HEMOGLOBIN 28.6 pg (28.0-32.0); MEAN PLATELET VOLUME 7.8 fl (7.4-10.4); PLATELET 216 x1000/uL (130-400); RED BLOOD CELL COUNT 2.89 mill/uL (4.2-5.4); RED CELL DISTRIBUTION WIDTH 18.6 % (11.6-14.6)
[2020-04-18 11:57] LABS: PLATELET ESTIMATE NORMAL
[2020-04-18 12:00] VITALS: BP 105/59
[2020-04-18 16:00] VITALS: BP 108/60
[2020-04-18] MEDS: DILTIAZEM HCL 30MG TABLET PO SCH (17:42)
[2020-04-18] MEDS: ATORVASTATIN CALCIUM 40MG TABLET PO SCH (19:49)
[2020-04-18] MEDS: OLANZAPINE 10MG TABLET PO SCH (19:50)
[2020-04-18 20:00] VITALS: BP 129/58
[2020-04-19] VITALS: BP 121/50
[2020-04-19] MEDS: DILTIAZEM HCL 30MG TABLET PO SCH ×5 (00:46→23:19)
[2020-04-19] MEDS: SODIUM CHLORIDE 0.45% 1,000 ML IV SCH (00:47)
[2020-04-19 04:00] VITALS: BP 129/59
[2020-04-19] MEDS: BLOOD SUGAR DIAGNOSTIC STRIP TEST SCH ×4 (04:53→19:56)
[2020-04-19] MEDS: INSULIN LISPRO 100 UNITS/ML SUBCUT SCH ×4 (04:53→20:00)
[2020-04-19 06:44] LABS: HEMATOCRIT. 24.9 % (36.0-48.0); HEMOGLOBIN. 8.3 g/dL (12.0-16.0); MEAN CORPUSCULAR HEMOGLOBIN 28.8 pg (28.0-32.0); MEAN CORPUSCULAR VOLUME 86.4 fL (81.0-99.0); MEAN PLATELET VOLUME 7.7 fl (7.4-10.4); PLATELET 224 x1000/uL (130-400); RED BLOOD CELL COUNT 2.89 mill/uL (4.2-5.4); RED CELL DISTRIBUTION WIDTH 18.4 % (11.6-14.6)
[2020-04-19 07:44] LABS: PHOSPHORUS 5.8 mg/dL (2.5-4.9)
[2020-04-19] MEDS: VENLAFAXINE HCL 37.5MG SR CAPSULE 24HR PO SCH (08:52)
[2020-04-19] MEDS: FERROUS SULFATE 325MG TABLET PO SCH ×3 (08:52→17:20)
[2020-04-19] MEDS: METHYLPREDNISOLONE SOD SUCC 40 MG/ML VIAL IV SCH ×2 (08:53→19:59)
[2020-04-19] MEDS: SODIUM CHLORIDE 0.9% 1,000 ML IV SCH ×2 (08:53→20:11)
[2020-04-19] MEDS: PANTOPRAZOLE SODIUM 40 MG/VIAL IV SCH (08:53)
[2020-04-19] MEDS: IPRATROPIUM/ALBUTEROL 0.5-3(2.5)MG/3ML NEB HHN SCH ×4 (09:39→21:12)
[2020-04-19] MEDS ORDERED: MAGNESIUM 1 G PREMIX 100 ML IV SCH (10:00)
[2020-04-19 12:23] LABS: PLATELET ESTIMATE NORMAL
[2020-04-19] MEDS: ATORVASTATIN CALCIUM 40MG TABLET PO SCH (19:57)
[2020-04-19] MEDS: OLANZAPINE 10MG TABLET PO SCH (19:58)
[2020-04-19 20:00] VITALS: BP 133/53
[2020-04-20] VITALS: BP 128/66
[2020-04-20] MEDS: IPRATROPIUM/ALBUTEROL 0.5-3(2.5)MG/3ML NEB HHN SCH ×6 (01:01→21:06)
[2020-04-20 04:00] VITALS: BP 128/60
[2020-04-20] MEDS: DILTIAZEM HCL 30MG TABLET PO SCH ×3 (05:15→18:35)
[2020-04-20] MEDS: BLOOD SUGAR DIAGNOSTIC STRIP TEST SCH ×4 (05:16→21:07)
[2020-04-20] MEDS: INSULIN LISPRO 100 UNITS/ML SUBCUT SCH ×4 (05:16→21:32)
[2020-04-20 07:11] LABS: HEMATOCRIT. 24.6 % (36.0-48.0); HEMOGLOBIN. 8.3 g/dL (12.0-16.0); MEAN CORPUSCULAR VOLUME 86.3 fL (81.0-99.0); MEAN PLATELET VOLUME 8.5 fl (7.4-10.4); PLATELET 222 x1000/uL (130-400); RED BLOOD CELL COUNT 2.85 mill/uL (4.2-5.4); RED CELL DISTRIBUTION WIDTH 18.6 % (11.6-14.6)
[2020-04-20] MEDS: FERROUS SULFATE 325MG TABLET PO SCH ×3 (07:40→18:38)
[2020-04-20 08:00] VITALS: BP 133/63
[2020-04-20] MEDS ORDERED: SODIUM BICARBONATE 4% (2.4MEQ) 5ML VIAL IV ONE (08:42)
[2020-04-20] MEDS ORDERED: LIDOCAINE HCL 1% 20ML VIAL (Pyxis) INJ ONE (08:42)
[2020-04-20] MEDS: VENLAFAXINE HCL 37.5MG SR CAPSULE 24HR PO SCH (09:00)
[2020-04-20] MEDS: PANTOPRAZOLE SODIUM 40 MG/VIAL IV SCH (09:00)
[2020-04-20] MEDS: METHYLPREDNISOLONE SOD SUCC 40 MG/ML VIAL IV SCH ×2 (09:00→21:07)
[2020-04-20 10:57] LABS: PLATELET ESTIMATE NORMAL
[2020-04-20 12:00] VITALS: BP 138/45
[2020-04-20] MEDS: SODIUM CHLORIDE 0.9% 1,000 ML IV SCH (13:13)
[2020-04-20 16:00] VITALS: BP 141/72
[2020-04-20 20:00] VITALS: BP 129/50
[2020-04-20] MEDS: ATORVASTATIN CALCIUM 40MG TABLET PO SCH (21:07)
[2020-04-20] MEDS: OLANZAPINE 10MG TABLET PO SCH (21:07)
[2020-04-21] VITALS: BP 118/77
[2020-04-21] MEDS: IPRATROPIUM/ALBUTEROL 0.5-3(2.5)MG/3ML NEB HHN SCH ×6 (00:26→21:43)
[2020-04-21] MEDS: DILTIAZEM HCL 30MG TABLET PO SCH ×4 (00:55→18:14)
[2020-04-21 04:00] VITALS: BP 127/56
[2020-04-21] MEDS: SODIUM CHLORIDE 0.9% 1,000 ML IV SCH ×2 (05:55→15:40)
[2020-04-21] MEDS: FERROUS SULFATE 325MG TABLET PO SCH ×3 (05:55→18:14)
[2020-04-21] MEDS: BLOOD SUGAR DIAGNOSTIC STRIP TEST SCH ×4 (05:56→20:41)
[2020-04-21] MEDS: INSULIN LISPRO 100 UNITS/ML SUBCUT SCH ×4 (06:05→20:49)
[2020-04-21 08:00] VITALS: BP 152/62
[2020-04-21 08:35] LABS: PHOSPHORUS 4.1 mg/dL (2.5-4.9)
[2020-04-21] MEDS: PANTOPRAZOLE SODIUM 40 MG/VIAL IV SCH (08:35)
[2020-04-21] MEDS: METHYLPREDNISOLONE SOD SUCC 40 MG/ML VIAL IV SCH ×2 (08:35→20:40)
[2020-04-21] MEDS: VENLAFAXINE HCL 37.5MG SR CAPSULE 24HR PO SCH (08:35)
[2020-04-21 10:06] LABS: HEMATOCRIT. 26.1 % (36.0-48.0); HEMOGLOBIN. 8.6 g/dL (12.0-16.0); MEAN CORPUSCULAR HEMOGLOBIN 28.6 pg (28.0-32.0); MEAN CORPUSCULAR VOLUME 86.5 fL (81.0-99.0); MEAN PLATELET VOLUME 7.9 fl (7.4-10.4); PLATELET 213 x1000/uL (130-400); RED BLOOD CELL COUNT 3.02 mill/uL (4.2-5.4); RED CELL DISTRIBUTION WIDTH 18.8 % (11.6-14.6)
[2020-04-21 12:00] VITALS: BP 153/58
[2020-04-21] MEDS ORDERED: CALCIUM CHLORIDE 1,000 MG in DEXT 5% WATER 90 ML IV NR (12:30)
[2020-04-21 16:00] VITALS: BP_SYST 131; BP_SYST 139; BP_DIAS 55
[2020-04-21 20:00] VITALS: BP 149/56
[2020-04-21] MEDS: OLANZAPINE 10MG TABLET PO SCH (20:41)
[2020-04-21] MEDS: ATORVASTATIN CALCIUM 40MG TABLET PO SCH (20:41)
[2020-04-21 23:39] LABS: PLATELET ESTIMATE NORMAL
[2020-04-22] VITALS (8 sets, daily range): BP systolic 115–164; BP diastolic 43–75
[2020-04-22] MEDS: IPRATROPIUM/ALBUTEROL 0.5-3(2.5)MG/3ML NEB HHN SCH ×5 (01:14→23:12)
[2020-04-22] MEDS: DILTIAZEM HCL 30MG TABLET PO SCH ×4 (01:26→17:36)
[2020-04-22] MEDS: SODIUM CHLORIDE 0.9% 1,000 ML IV SCH ×2 (03:25→17:20)
[2020-04-22 05:54] LABS: HEMATOCRIT. 22.3 % (36.0-48.0); HEMOGLOBIN. 7.5 g/dL (12.0-16.0); MEAN CORPUSCULAR HEMOGLOBIN 29.2 pg (28.0-32.0); MEAN CORPUSCULAR VOLUME 86.9 fL (81.0-99.0); MEAN PLATELET VOLUME 8.3 fl (7.4-10.4); PLATELET 184 x1000/uL (130-400); RED BLOOD CELL COUNT 2.57 mill/uL (4.2-5.4); RED CELL DISTRIBUTION WIDTH 18.5 % (11.6-14.6)
[2020-04-22] MEDS: FERROUS SULFATE 325MG TABLET PO SCH ×3 (06:58→17:37)
[2020-04-22] MEDS: BLOOD SUGAR DIAGNOSTIC STRIP TEST SCH ×4 (06:58→21:00)
[2020-04-22] MEDS: INSULIN LISPRO 100 UNITS/ML SUBCUT SCH ×4 (08:23→21:13)
[2020-04-22] MEDS: PANTOPRAZOLE SODIUM 40 MG/VIAL IV SCH (08:37)
[2020-04-22] MEDS: VENLAFAXINE HCL 37.5MG SR CAPSULE 24HR PO SCH (08:37)
[2020-04-22] MEDS: METHYLPREDNISOLONE SOD SUCC 40 MG/ML VIAL IV SCH ×2 (08:38→21:11)
[2020-04-22 20:06] LABS: HEMATOCRIT 27.8 % (36.0-48.0); HEMOGLOBIN 9.5 g/dL (12.0-16.0)
[2020-04-22 20:16] LABS: INR 1.1; PROTHROMBIN TIME 11.4 sec (9.6-11.0)
[2020-04-22] MEDS ORDERED: EPOETIN ALFA-EPBX 10,000 UNIT/ML VIAL SUBCUT NR (21:00)
[2020-04-22] MEDS: OLANZAPINE 10MG TABLET PO SCH (21:12)
[2020-04-22] MEDS: ATORVASTATIN CALCIUM 40MG TABLET PO SCH (21:12)
[2020-04-22 22:58] LABS: PLATELET ESTIMATE NORMAL
[2020-04-23] VITALS: BP 143/69
[2020-04-23] MEDS: DILTIAZEM HCL 30MG TABLET PO SCH ×3 (00:36→17:52)
[2020-04-23] MEDS: IPRATROPIUM/ALBUTEROL 0.5-3(2.5)MG/3ML NEB HHN SCH ×5 (02:46→21:25)
[2020-04-23 04:00] VITALS: BP 127/67
[2020-04-23] MEDS: INSULIN LISPRO 100 UNITS/ML SUBCUT SCH ×4 (06:18→21:10)
[2020-04-23 08:00] VITALS: BP 145/73
[2020-04-23] MEDS: METHYLPREDNISOLONE SOD SUCC 40 MG/ML VIAL IV SCH ×2 (10:40→21:08)
[2020-04-23] MEDS: VENLAFAXINE HCL 37.5MG SR CAPSULE 24HR PO SCH (10:40)
[2020-04-23] MEDS: PANTOPRAZOLE SODIUM 40 MG/VIAL IV SCH (10:40)
[2020-04-23] MEDS: FERROUS SULFATE 325MG TABLET PO SCH ×3 (10:43→17:53)
[2020-04-23 12:00] VITALS: BP 154/82
[2020-04-23] MEDS ORDERED: DIGOXIN 500MCG/2ML AMP IV SCH (13:00)
[2020-04-23] MEDS: BLOOD SUGAR DIAGNOSTIC STRIP TEST SCH ×3 (13:08→21:10)
[2020-04-23 14:25] LABS: TOTAL IRON BINDING CAPACITY 228 ug/dL (250-450)
[2020-04-23 16:00] VITALS: BP 149/77
[2020-04-23] MEDS: SODIUM CHLORIDE 0.9% 1,000 ML IV SCH (18:34)
[2020-04-23 20:00] VITALS: BP 153/59
[2020-04-23] MEDS: ATORVASTATIN CALCIUM 40MG TABLET PO SCH (21:09)
[2020-04-23] MEDS: OLANZAPINE 10MG TABLET PO SCH (21:09)
[2020-04-24] VITALS: BP 140/80
[2020-04-24] MEDS: DILTIAZEM HCL 30MG TABLET PO SCH ×2 (00:30→05:51)
[2020-04-24] MEDS: IPRATROPIUM/ALBUTEROL 0.5-3(2.5)MG/3ML NEB HHN SCH ×5 (00:36→15:52)
[2020-04-24 04:00] VITALS: BP 140/50
[2020-04-24] MEDS: INSULIN LISPRO 100 UNITS/ML SUBCUT SCH ×3 (06:25→17:01)
[2020-04-24] MEDS: BLOOD SUGAR DIAGNOSTIC STRIP TEST SCH ×3 (06:25→16:56)
[2020-04-24 07:54] LABS: HEMATOCRIT. 29.3 % (36.0-48.0); HEMOGLOBIN. 9.7 g/dL (12.0-16.0); MEAN CORPUSCULAR HEMOGLOBIN 28.6 pg (28.0-32.0); MEAN PLATELET VOLUME 7.7 fl (7.4-10.4); PLATELET 209 x1000/uL (130-400); RED BLOOD CELL COUNT 3.37 mill/uL (4.2-5.4); RED CELL DISTRIBUTION WIDTH 18.1 % (11.6-14.6)
[2020-04-24 08:00] VITALS: BP 140/62
[2020-04-24] MEDS: PANTOPRAZOLE SODIUM 40 MG/VIAL IV SCH (08:44)
[2020-04-24] MEDS: VENLAFAXINE HCL 37.5MG SR CAPSULE 24HR PO SCH (08:44)
[2020-04-24] MEDS: METHYLPREDNISOLONE SOD SUCC 40 MG/ML VIAL IV SCH (08:44)
[2020-04-24] MEDS: FERROUS SULFATE 325MG TABLET PO SCH ×3 (08:45→16:55)
[2020-04-24] MEDS: SODIUM CHLORIDE 0.9% 1,000 ML IV SCH (08:45)
[2020-04-24 12:00] VITALS: BP 159/51
[2020-04-24] MEDS ORDERED: DILTIAZEM HCL 90MG TABLET PO SCH (14:00)
[2020-04-24 14:19] LABS: PLATELET ESTIMATE NORMAL
[2020-04-24 16:00] VITALS: BP 160/65
[2020-04-24 17:44] VITALS: BP 160/65
[2020-05-10] MEDS ORDERED: VENL-180 PO (14:33)
[2020-05-10] MEDS ORDERED: PANT40TA51 PO (14:33)
[2020-05-10] MEDS ORDERED: LOSA50TA41 PO (14:33)
[2020-05-10] MEDS ORDERED: FURO40TA5 PO (14:33)
[2020-05-10] MEDS ORDERED: TERA1CAP46 MT (14:33)
[2020-05-10] MEDS ORDERED: OLAN20TA34 MT (14:33)
[2020-05-10] MEDS ORDERED: CELE200C MT (14:33)
[2020-05-10] MEDS ORDERED: FERR325T6 MT (14:33)
[2020-05-10] MEDS ORDERED: SENN-257 MT (14:33)
[2020-05-10] MEDS ORDERED: LEVO25TA7 PO (14:33)
[2020-05-10] MEDS ORDERED: FOLI-43 MT (14:33)
[2020-05-10] MEDS ORDERED: FAMO20TA8 PO (14:33)
[2020-05-10] MEDS ORDERED: ATEN50TA MT (14:33)
[2020-05-10] MEDS ORDERED: ATOR-2 MT (14:33)
[2020-05-10] MEDS ORDERED: AMLO10TA80 PO (14:33)
[2020-05-10] MEDS ORDERED: AMLO5TAB88 MT (15:35)
== END 2020-04-24 18:05 | DRG 193 ==
LOC: ER 17:14 → EDBEDREQTM 18:17 → EDBEDREQ 18:17 → EDBEDREQSVC 18:17 → MICUSO 22:48 → 8WST 04-12 08:32
PROVIDERS: ADMIT Specialist; ATTEND Specialist
PROC: 5A1D70Z Performance of Urinary Filtration, Intermittent, Less than 6 Hours Per Day (ICD-10-PCS; 2020-04-19)
PROC: 02HV33Z Insertion of Infusion Device into Superior Vena Cava, Percutaneous Approach (ICD-10-PCS; principal; 2020-04-20)
PROC: B518ZZA Fluoroscopy of Superior Vena Cava, Guidance (ICD-10-PCS; 2020-04-20)
PROC: B548ZZA Ultrasonography of Superior Vena Cava, Guidance (ICD-10-PCS; 2020-04-20)
PROC: 5A1D70Z Performance of Urinary Filtration, Intermittent, Less than 6 Hours Per Day (ICD-10-PCS; 2020-04-20)
PROC: 30233N1 Transfusion of Nonautologous Red Blood Cells into Peripheral Vein, Percutaneous Approach (ICD-10-PCS; 2020-04-22)
PROC: 5A1D70Z Performance of Urinary Filtration, Intermittent, Less than 6 Hours Per Day (ICD-10-PCS; 2020-04-22)
DX: J18.9 Pneumonia, unspecified organism (principal); N17.0 Acute kidney failure with tubular necrosis; E87.3 Alkalosis; J44.0 Chronic obstructive pulmonary disease with (acute) lower respiratory infection; I50.32 Chronic diastolic (congestive) heart failure; E87.1 Hypo-osmolality and hyponatremia; I13.0 Hypertensive heart and chronic kidney disease with heart failure and stage 1 through stage 4 chronic kidney disease, or unspecified chronic kidney disease; R09.02 Hypoxemia; E03.9 Hypothyroidism, unspecified; F31.9 Bipolar disorder, unspecified; G25.0 Essential tremor; K21.9 Gastro-esophageal reflux disease without esophagitis; M32.9 Systemic lupus erythematosus, unspecified; D64.9 Anemia, unspecified; E78.5 Hyperlipidemia, unspecified; T38.0X5A Adverse effect of glucocorticoids and synthetic analogues, initial encounter; K22.70 Barrett's esophagus without dysplasia; E87.5 Hyperkalemia; I48.0 Paroxysmal atrial fibrillation; I49.3 Ventricular premature depolarization; M19.90 Unspecified osteoarthritis, unspecified site; I35.1 Nonrheumatic aortic (valve) insufficiency; I34.0 Nonrheumatic mitral (valve) insufficiency; I25.10 Atherosclerotic heart disease of native coronary artery without angina pectoris; E83.42 Hypomagnesemia; D50.0 Iron deficiency anemia secondary to blood loss (chronic); E87.6 Hypokalemia; K22.0 Achalasia of cardia; K44.9 Diaphragmatic hernia without obstruction or gangrene; N18.30 Chronic kidney disease, stage 3 unspecified; Z20.822 Contact with and (suspected) exposure to COVID-19; E11.22 Type 2 diabetes mellitus with diabetic chronic kidney disease; I25.82 Chronic total occlusion of coronary artery; Z79.4 Long term (current) use of insulin; Z86.73 Personal history of transient ischemic attack (TIA), and cerebral infarction without residual deficits; I25.2 Old myocardial infarction; Z95.3 Presence of xenogenic heart valve; Z82.3 Family history of stroke; Z82.49 Family history of ischemic heart disease and other diseases of the circulatory system; Z90.49 Acquired absence of other specified parts of digestive tract; Z88.5 Allergy status to narcotic agent; Z88.2 Allergy status to sulfonamides; Z87.891 Personal history of nicotine dependence; Y92.89 Other specified places as the place of occurrence of the external cause; Z79.899 Other long term (current) drug therapy; Z79.01 Long term (current) use of anticoagulants; Z99.2 Dependence on renal dialysis; Z79.02 Long term (current) use of antithrombotics/antiplatelets; Z90.710 Acquired absence of both cervix and uterus; Z91.81 History of falling; Z98.61 Coronary angioplasty status; F41.1 Generalized anxiety disorder
CPT/HCPCS: 36415; 36556; 36600; 71045; 71250; 76937; 77001; 80048; 80053; 80061; 82040; 82270; 82375; 82378; 82805; 82962; 83036; 83540; 83550; 83605; 83735; 83880; 84100; 84145; 84436; 84443; 84484; 85014; 85018; 85025; 85049; 85379; 85384; 86850; 86900; 86920; 87426; 93005; 94640; 97110; 97116; 97162; 97530; 99285; A6261; C1752; C1893; C9113; J0696; J0885; J1160; J1642; J1650; J1815; J2920; J3411; J3475; J3490; J7030; J7040; J7060; P9016; J8499